=== PATIENT | female | born 1970 | race Hispanic/Latino ===

== ENCOUNTER 2021-12-01 07:00 | Emergency (ER) | payer SELFPAY ==
[2021-12-01] MEDS ORDERED: Dicyclomine 20 MG/2 ML VIAL ONE (07:25)
[2021-12-01] MEDS ORDERED: Ondansetron PF 4 MG/2 ML Vial ONE (07:25)
[2021-12-01 08:06] LABS: #Eosinphils 0.1 10x3/uL (0.0-0.5); #Monocytes 0.6 10x3/uL (0.0-1.1); #Neutrophils 4.6 10x3/uL (1.5-8.4); %Basophils 0.5 % (0.0-2.0); %Eosinophils 1.9 % (0.0-6.0); %Lymphocytes 28.4 % (18.0-47.0); %Neutrophils 60.9 % (40.0-75.0); Hemoglobin 12.7 g/dL (12.0-15.5); Mean Corpuscular HGB CONC 33.1 g/dL (32.0-36.0); Mean Corpuscular Hemoglobin 28.2 pg (27.0-33.0); Mean Corpuscular Volume 85.1 fl (81.6-98.3); Mean Platelet Volume 10.6 fl (7.4-10.4); Platelet Count 279 10x3/uL (150-450); RBC Distribution Width 13.4 % (11.5-14.5); Red Blood Cell (RBC) Count 4.51 10x6/uL (3.90-5.03); White Blood Cell (WBC) Count 7.5 10x3/uL (3.5-10.5)
[2021-12-01 09:06] LABS: ALT (SGPT) 29 U/L (8-55); AST (SGOT) 12 U/L (5-34); Alkaline Phosphatase 111 U/L (40-110); Anion Gap 13 mmol/L (10-20); BUN (Urea Nitrogen) 12 mg/dL (9.8-20.1); Bilirubin, Total 0.4 mg/dL (0.2-1.2); Calc. Creatinine Clearance 0 mL/min (70-130); Calcium 9.5 mg/dL (7.8-10.44); Carbon Dioxide 25 mmol/L (22-29); Chloride 103 mmol/L (98-107); Glucose 298 mg/dL (70-105); Lipase 22 U/L (8-78); Potassium 3.9 mmol/L (3.5-5.1); Sodium 137 mmol/L (136-145)
== END 2021-12-01 09:41 | disposition home or self-care (01) ==
LOC: CSHERS 07:00
DX: R10.13 Epigastric pain (principal); R11.2 Nausea with vomiting, unspecified; E11.9 Type 2 diabetes mellitus without complications; Z87.19 Personal history of other diseases of the digestive system; Z79.4 Long term (current) use of insulin; Z79.899 Other long term (current) drug therapy
CPT/HCPCS: 71045; 80053; 83690; 84484; 85025; 93005; 96372; 96374; J0500; J2405

== ENCOUNTER 2022-07-20 20:34 | Emergency (ER) | payer SELFPAY | END 2022-07-20 22:47 | disposition home or self-care (01) | LOC: CSHERS 20:34 | DX: S16.1XXA Strain of muscle, fascia and tendon at neck level, initial encounter (principal); E11.9 Type 2 diabetes mellitus without complications; X58.XXXA Exposure to other specified factors, initial encounter; Z79.84 Long term (current) use of oral hypoglycemic drugs | CPT/HCPCS: 99283 ==